=== PATIENT | male | born 1935 | race Caucasian/White ===

== ENCOUNTER 2020-04-25 15:19 | Emergency (ER) | payer MEDICARE, BC, OTHER ==
[~2020-04-25 15:19] MED LIST: Iopamidol-370 76% 500 ML 1 ML ONE
[2020-04-25 15:44] LABS: Bilirubin Negative (Negative); Blood, Urine Negative (Negative); Clarity Clear (Clear); Glucose, Urine (Dipstick) Normal (Negative); Ketone, Urine Negative (Negative); Leukocyte Negative Leu/uL (Negative); Nitrite Negative (Negative); Protein, Urine (Dipstick) 10 mg/dL (Neg-Trace); Specific Gravity, Urine 1.027 (1.002-1.036); Urobilinogen Normal mg/dL (Less than 2); pH, Urine 5.5 (5.0-9.0)
[2020-04-25 15:48] LABS: #Basophils 0.1 thou/uL (0.0-0.2); #Lymphocytes 1.5 thou/uL (1.20-3.40); #Monocytes 0.7 thou/uL (0.11-0.59); #Neutrophils 7.3 thou/uL (1.40-6.50); %Basophils 0.7 % (0.0-1.0); %Eosinophils 0.5 % (0.0-10.0); %Lymphocytes 15.7 % (21.0-51.0); %Monocytes 7.5 % (0.0-10.0); %Neutrophils 75.7 % (42.0-75.0); Hemoglobin 16.2 g/dL (14.0-18.0); Mean Corpuscular Hemoglobin 31.8 pg (27.0-31.0); Platelet Count 235 thou/uL (130-400); RBC Distribution Width 11.7 % (11.5-14.5); Red Blood Cell (RBC) Count 5.08 mill/uL (4.70-6.10); White Blood Cell (WBC) Count 9.6 thou/uL (4.8-10.8)
[2020-04-25 16:09] LABS: ALT (SGPT) 29 U/L (8-55); AST (SGOT) 24 U/L (5-34); Albumin 4.7 g/dL (3.4-4.8); Alkaline Phosphatase 58 U/L (40-110); Anion Gap 14 mmol/L (10-20); BUN (Urea Nitrogen) 18 mg/dL (8.4-25.7); Bilirubin, Total 0.8 mg/dL (0.2-1.2); Calc. Creatinine Clearance 0 mL/min (70-130); Calcium 10.2 mg/dL (7.8-10.44); Carbon Dioxide 30 mmol/L (23-31); Chloride 101 mmol/L (98-107); Estimated GFR-MDRD 54; Globulin 2.7 g/dL (2.4-3.5); Glucose 142 mg/dL (83-110); Lipase 26 U/L (8-78); Protein, Total 7.4 g/dL (5.8-8.1); Sodium 141 mmol/L (136-145)
--- NOTE | 2020-04-25 19:55 | CT ---
Exam: CTA chest with 3-D rendering: CTA abdomen with 3-D rendering: HISTORY: Epigastric abdominal pain. COMPARISON: 03/27/2015 CT angiogram runoff TECHNIQUE: CT angiogram of the thoracic and abdominal aorta performed in the axial plane. Three-dimen sional reformatted images are submitted for interpretation. FINDINGS: Chest CT: Mediastinum: No mass, lymphadenopathy or hematoma Heart: Normal heart size. No significant pericardial fluid. Coronary arteries: Atherosclerotic Trachea and central bronchi: Patent Pleural spaces: No pleural effusion. Right lung: Scarring and atelectasis. No suspicious masses or nodules. Left lung: Scarring and atelectasis. No suspicious nodules. There are calcified granulomas in the josesito gula and lateral aspect of the left lower lobe. There is a pleural-based nodule along the lateral margin of the left lower lobe measuring 0.5 cm. Pneumothorax: None Abdomen CT: Gallbladder: Unremarkable Portal vein: Patent Solid organs:Diffuse hypoattenuation liver compatible with hepatic steatosis. Appropriate arterial ph ase enhancement of the spleen, pancreas and adrenal glands. Kidneys: Symmetric enhancement. No obstructive uropathy. Mesentery: No mass, lymphadenopathy, free air or free fluid Alimentary canal: Limited evaluation by the lack of oral contrast. No evidence of a bowel obstruction . Normal ileocecal junction. There is mild mucosal thickening involving multiple small bowel loops. Correlate for developing enteritis. Osseous structures: No lytic or blastic lesions. There is diffuse bone demineralization. CT ANGIOGRAM: The root of the ascending thoracic aorta, ascending thoracic aorta, aortic arch, descending thoracic aorta and abdominal aorta have an overall normal course and caliber. There is mild atherosclerotic disease. No evidence of dissection or periaortic fat stranding. Small saccular aneurysm of the abdomi nal aorta just beyond the inferior mesenteric artery origin. Craniocaudal dimension of the sacral aneurysm is 2.1 cm. Visualized aortic bifurcation and iliac arteries are patent. The celiac artery, s uperior mesenteric artery, bilateral renal arteries and inferior mesenteric artery are also patent. There is no evidence of aneurysm. There is at least mild narrowing involving the proximal superior me senteric artery secondary to atherosclerosis. IMPRESSION: 1. No evidence of dissection. 2. 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 4. Mild small bowel wall thickening. Correlate for developing enteritis. Transcribed Date/Time: 04/25/2020 8:28 PM
== END 2020-04-25 20:46 | disposition home or self-care (01) ==
LOC: ERS 15:19
DX: K52.9 Noninfective gastroenteritis and colitis, unspecified (principal); I71.4 Abdominal aortic aneurysm, without rupture; E11.9 Type 2 diabetes mellitus without complications; I10 Essential (primary) hypertension
CPT/HCPCS: 36415; 71275; 72191; 74175; 80053; 81003; 83690; 84484; 85025; 93005; Q9967

== ENCOUNTER 2021-07-22 12:34 | Outpatient (CLI) | payer MEDICARE, BC, OTHER | END 2021-07-22 12:35 | disposition home or self-care (01) | LOC: BICULT 12:34 | PROVIDERS: ATTEND Internal Medicine Nephrology | DX: N18.9 Chronic kidney disease, unspecified (principal) | CPT/HCPCS: 76770; 93975 ==

== ENCOUNTER 2022-12-28 19:00 | Outpatient (CLI) | payer BC, OTHER | END 2022-12-28 19:01 | disposition home or self-care (01) | LOC: SLEEPLAB 19:00 | PROVIDERS: ATTEND Family Medicine | DX: G47.33 Obstructive sleep apnea (adult) (pediatric) (principal); E11.9 Type 2 diabetes mellitus without complications; I10 Essential (primary) hypertension; R06.83 Snoring; R53.83 Other fatigue | CPT/HCPCS: 95811 ==

== ENCOUNTER 2024-06-23 10:41 | Outpatient (CLI) | payer MEDICARE, BC, OTHER | END 2024-06-23 10:42 | disposition home or self-care (01) | LOC: SCSRAD 10:41 | PROVIDERS: ATTEND Family Medicine | DX: S69.92XA Unspecified injury of left wrist, hand and finger(s), initial encounter (principal); M79.89 Other specified soft tissue disorders ==